=== PATIENT | female | born 1990 | race Caucasian/White ===

== ENCOUNTER 2016-05-16 01:32 | Emergency (ER) | payer OTHER ==
[~2016-05-16] VITALS: Ht 170.2 cm; Wt 68.0 kg
[2016-05-16] MEDS ORDERED: ONDANSETRON 4MG OD TAB PO STA (01:41)
--- NOTE | 2016-05-16 01:47 | EMERGENCY ROOM VISIT NOTE ---
History Report prepared by Edwin: Hamida Echevarria Under the Supervision of: Dr. Brandon Beltran M.D. 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 According to nursing staff the patient was found downtown vomiting and no sober friends where with the patient at the time. The patient states that she is nausea and vomiting. HPI limited secondary to vomiting profusely and intoxication. The patient states that she was drinking beer tonight. 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 A total of 10 systems reviewed and were otherwise negative. Past Medical & Surgical Medical Problems: (1) No Known Active Medical Problems Family History No pertinent family history stated. Social History Alcohol Use: occasionally Marital Status: single Housing Status: lives with roommate Occupation Status: student Current/Historical Medications Scheduled Venlafaxine Hcl (Venlafaxine Extended Rel), 75 MG PO DAILY Allergies Coded Allergies: No Known Allergies (Unverified , 05/16/16) Physical Exam Vital Signs Date Time Temp Pulse Resp B/P Pulse Ox O2 Delivery O2 Flow Rate FiO2 05/16/16 03:21 72 20 100/58 100 Room Air 05/16/16 02:00 36.9 82 19 117/72 99 Room Air 05/16/16 01:45 79 Physical Exam GENERAL: Patient is moderately intoxicated. Smells of alcohol. Actively vomiting. HEAD: No evidence of Trauma. AT/NC EYES: injected conjunctiva. Normal EOM. Pupils equal/reactive. ENT: Mucous membranes moist, no nasal congestion, . NECK: No step-offs, no adenopathy, no meningismus, trachea is midline. LUNGS: No dyspnea. Clear to auscultation and equal bilaterally. No wheeze, no rhonchi. HEART: Regular rate and rhythm. No murmurs, rubs, gallops appreciated. ABDOMEN: Soft, nontender, bowel sounds positive, no masses appreciated, no peritonitis. BACK: No midline tenderness, no CVA tenderness EXTREMITIES: Normal motion all extremities, no cyanosis, no edema. NEUROLOGIC: Intoxicated. Awake, Alert, oriented. No acute motor or sensory deficits, no focal weakness, cranial nerves grossly intact. SKIN: No rash, no jaundice, no diaphoresis. Medical Decision & Procedures Laboratory Results 05/16/16 01:53 Test 05/16/16 01:53 Anion Gap 15.0 mmol/L (3-11) Estimated GFR () 113.6 Estimated GFR (Non- 98.0 BUN/Creatinine Ratio 16.9 (10-20) Calcium Level 8.8 mg/dl (8.5-10.1) Human Chorionic Gonadotropin, Qual NEG (NEG) Ethyl Alcohol mg/dL 99.0 mg/dl (0-3) Laboratory results as reviewed by me. Medications Administered Medications (Trade) Dose Ordered Sig/Ramu Route Start Time Stop Time Status Last Admin Dose Admin Ondansetron HCl (Zofran Odt) 4 mg NOW STAT PO 05/16/16 01:41 05/16/16 01:42 DC 05/16/16 02:00 4 MG Ondansetron HCl (Zofran Odt) 4 mg ONE ONCE PO 05/16/16 02:45 05/16/16 02:46 DC 05/16/16 03:18 4 MG ED Course 0140: The patient was evaluated in room B11. A complete history and physical exam was performed. 0141: Ordered Zofran Odt 4 mg PO. 0240: I reevaluated the patient and she states she is still feeling nauseous. She asked if she can go home. She will either find a ride with a friend or go home by Uber.I discussed results and discharge instructions: She verbalized understanding and agreement. The patient is ready for discharge after recieving the dose of Zofran for nausea. 0245: Ordered Zofran Odt 4 mg PO. Medical Decision Differential: Alcohol Intoxication, Drug Intoxication, Electrolyte Abnormality, Trauma, Intracranial Event, Toxicological, Excited Delirium, Serotonin Syndrome , amongst other pathologies entertained. 26 yr old intoxicated female brought in by EMS after being found intoxicated vomiting downtown. Vomited here improving with first, then fully with second zofran. Patient with no evidence nor history for trauma. Protecting airway and breathing comfortably throughout ED stay. EtOH positive. Monitored and discharged when awake, alert, oriented and denies any complaints. Advised increased potassium intake after sobering up. Impression Primary Impression: Alcohol intoxication Additional Impressions: Vomiting Hypokalemia Scribe Attestation The scribe's documentation has been prepared under my direction and personally reviewed by me in its entirety. I confirm that the note above accurately reflects all work, treatment, procedures, and medical decision making performed by me. Departure Information Dispostion Home / Self-Care Referrals No Doctor, Assigned (PCP) Forms HOME CARE DOCUMENTATION FORM, IMPORTANT VISIT INFORMATION Patient Instructions Alcohol Intoxication - [facility], Hypokalemia Dc, [facility] Problem Qualifiers Primary Impression: Alcohol intoxication Complication of substance-induced condition: uncomplicated Qualified Codes: F10.120 - Alcohol abuse with intoxication, uncomplicated Additional Impressions: Vomiting Vomiting type: unspecified Vomiting Intractability: non-intractable Nausea presence: with nausea Qualified Codes: R11.2 - Nausea with vomiting, unspecified
[2016-05-16 02:00] VITALS: TEMP 36.9; Ht 170.2 cm; Wt 68.0 kg
[2016-05-16] MEDS ORDERED: VENL75CA73 PO (02:11)
[2016-05-16 02:27] LABS: PREG INTERNAL NEGATIVE QC NEG CLEAR BACKGROUND; PREG INTERNAL POSITIVE QC POS CONTROL LINE
[2016-05-16 02:28] LABS: BLOOD UREA NITROGEN 14 mg/dl (7-18); BUN/CREATININE RATIO 16.9 (10-20); CALCIUM 8.8 mg/dl (8.5-10.1); CARBON DIOXIDE 21 mmol/L (21-32); CHLORIDE 105 mmol/L (98-107); CREATININE 0.83 mg/dl (0.60-1.20); GLUCOSE 98 mg/dl (70-99); POTASSIUM 2.9 mmol/L (3.5-5.1); SODIUM 141 mmol/L (136-145)
[2016-05-16] MEDS ORDERED: ONDANSETRON 4MG OD TAB PO ONE (02:45)
[2016-05-16 03:21] VITALS: BP 100/58; PULSE 72; O2SAT 100
== END 2016-05-16 03:36 | disposition home or self-care (01) ==
LOC: EDBD 01:32 → C.EDB 01:37
DX: F10.129 Alcohol abuse with intoxication, unspecified (principal); E87.6 Hypokalemia; R11.10 Vomiting, unspecified; Z79.899 Other long term (current) drug therapy